=== PATIENT | male | born 2000 | race Two or more races ===

== ENCOUNTER → 2025-02-22 | Day surgery (SDC) | payer OTHER ==
[2025-02-19 12:30] LABS: Urine Bacteria None Seen /hpf (None Seen)
[2025-02-19 12:47] LABS: Basophils # (auto) 0.1 10 ^3/uL (0-0.2); Basophils % (auto) 0.8 % (0.0-2.0); Eosinophils # (auto) 0.1 10 ^3/uL (0-0.8); Eosinophils % (auto) 1.9 % (0.0-7.0); Hematocrit 47.8 % (41.0-53.0); Lymphocytes # (auto) 2.4 10 ^3/uL (0.4-5.4); Lymphocytes % (auto) 33.9 % (10.0-50.0); Mean Corpuscular Hemoglobin 29.7 pg (28.0-32.0); Mean Corpuscular Hgb Conc. 35.5 g/dL (32.0-36.0); Mean Corpuscular Volume 83.6 fL (80.0-100.0); Monocytes # (auto) 0.5 10 ^3/uL (0-1.3); Monocytes % (auto) 6.9 % (0.0-12.0); Neutrophils % (auto) 56.5 % (37.0-80.0); Nucleated Red Blood Cells % 0.4 %; Platelet Count (auto) 288 10^3/uL (140-450); Red Blood Cells 5.72 10^6/uL (4.5-5.90); Red Cell Distribution Width 12.7 % (11.8-14.3)
[2025-02-19 13:09] LABS: INR 0.97 (0.9-1.15); Partial Thromboplastin Time 26.5 SEC (24.5-34.5); Prothrombin Time 10.3 sec (9.3-11.8)
[2025-02-19 13:11] LABS: Alkaline Phosphatase 72 U/L (46-116); Anion Gap 7 (5-15); BUN/Creatinine Ratio 10.1 (10.0-20.0); Blood Urea Nitrogen 11 mg/dL (9-23); Carbon Dioxide 30 mmol/L (20-31); Chloride 103 mmol/L (98-107); Glucose 92 mg/dL (74-106); Potassium 4.4 mmol/L (3.5-5.1); Sodium 140 mmol/L (136-145); Total Protein 7.8 g/dL (5.7-8.2); Urine Blood Negative /uL (Negative); Urine Clarity Clear (Clear); Urine Color Light-Yellow (Yellow); Urine Protein, UAD Negative (Negative); Urine Specific Gravity 1.018 (1.001-1.035); Urine Squamous Epithelial Cell FEW /hpf (<5); Urine Urobilinogen Normal (Negative); Urine WBC < 1 /HPF (0-3)
[2025-02-19 13:18] LABS: Alanine Aminotransferase 115 U/L (7-40); Albumin 5.1 g/dL (3.2-4.8); Aspartate Aminotransferase 58 U/L (13-40)
[~2025-02-22] VITALS: Ht 188 cm; Wt 118.4 kg
[~2025-02-22] MED LIST: BACITRACIN TOP OINT 1 UD PKG TOP ONE; DexAMETHasone SOD PHOS 10MG/1ML VIAL INJ ONE; HYDROmorphone HCL 2 MG/ML VL/or syr IV PRN; HYDROmorphone HCL 2 MG/ML VL/or syr ONE; MEPERIDINE HCL (25 MG/ML) 1ML VIAL IV PRN; ONDANSETRON HCL 4 MG/2 ML VIAL IV ONE; ONDANSETRON HCL 4 MG/2 ML VIAL ONE; PROPOFOL 10 MG/ML 20 ML IV ONE; ROPIVACAINE 0.5% (5MG/ML) 20ML AMPULE IJ ONE; ceFAZolin 1GM VL ONE; ePHEDrine SULFATE 50 MG/ML AMP ONE; fentaNYL CITRATE 100 MCG/2 ML VL ONE
[2025-02-22] MEDS: BUPIVACAINE HCL 50 ML ONE (14:28)
--- NOTE | 2025-02-22 14:32 | DVHOP2 ---
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 These include but are not limited to complications of anesthesia, postoperative infection, incomplete relief of symptoms, recurrence of symptoms, damage to blood vessels, nerves and tendons, deep venous thrombosis, pulmonary embolism and possible need for repeat surgery in the future. Complications: None Estimated Blood Loss: 10 mL Indications for Surgery: The patient is a 24-year-old male who presented to the clinic with a history of recurrent patellar dislocations. He was referred to me by another orthopedic surgeon. Clinical and radiological evaluation demonstrated slight patellar laxity, 2+ quadrant. J sign was negative. Range of motion was full and free. MRI did show some lateral patellar subluxation with attenuation of the medial patellofemoral ligament. Nonoperative and operative management options were discussed. Surgery in the form of knee arthroscopy with medial patellofemoral ligament reconstruction was discussed with him. Pros and cons were discussed. Benefits, risks and treatment alternatives were discussed. Specific complications of the surgery such as neurovascular injury, infection, arthrofibrosis, loss of limb or life were discussed. The patient decided to proceed with the surgical option. Name of Procedure Performed Right knee arthroscopy with chondroplasty of the patella, open medial patellofemoral ligament reconstruction, imbrication of the vastus medialis o bliquus and repair of the medial patellar retinaculum Procedure Details Procedure Details: The patient was identified in the preoperative holding area and the surgical site was marked. The consent was verified. The patient was brought into the operating room and placed supine on the operating table. General anesthesia was administered. A tourniquet was applied over the proximal thigh. All the bony prominences were appropriately padded. The knee was positioned appropriately. The extremity was now prepped and draped in the usual sterile manner. A timeout was called out to confirm the identity of the patient, the nature of surgery, the site of surgery, the availability of implants and x-rays and allergies to medications. A standard anterolateral portal was established. A 30 degree scope was inserted. A standard anteromedial portal was established, a probe was inserted and the findings are as follows 1. Normal meniscus 2. Intact ACL and PCL 3. Intact medial compartment cartilage 4. Intact lateral meniscus and lateral compartment cartilage 5. Laterally subluxed patella with significant grade 2/3 chondromalacia Chondroplasty was performed. A shaver and thermal ablation device was used for the same. Most of the chondral damage was in the center and the lateral facet. Significant lateral subluxation was noted, approximately 20%. A partial lateral release was done to release the tension. Diagnostic arthroscopy was performed. I proceeded with the open part of the procedure Open medial patellofemoral ligament reconstruction: The tibialis posterior allograft was opened on the back table and prepared. Both the ends were whipstitched. It was placed on the Graftmaster with 10 pounds of tension. The quadrupled diameter was 8 mm. A small incision was made over the medial aspect of the patella. The skin and the subcutaneous tissue were dissected. The deep fascia was incised. The medial retinaculum was incised. The medial border of the patella was exposed. An arthroscopic bur was used to remove the scar tissue and debride the medial border. An all suture anchor was used. Two of these anchors were used for excellent fixation. Next, the graft was brought into the operative field and the midportion of the graft was secured to the medial border of the patella. Next, the medial epicondyle was exposed. For this an incision was made over it. The skin and the subcutaneous tissue were dissected. The deep fascia was incised and the medial epicondyle exposed. Hemostasis was achieved. A guidepin was inserted at the anatomical center of the attachment of the medial patellofemoral ligament. Radiographic markers were used. A eight mm reamer was now used to drill through the cortex up to the opposite cortex but not through it. The guidepin was used to shuttle a looped suture. Deep tissue dissection was carried out between the second and third layer to the medial epicondyle. The tail ends of the graft were now passed between these layers and through the loop into the femoral tunnel. The knee was kept at 30 degrees of flexion and adequate tension was applied to ensure that there is 1 quadrant laxity but not too lax or too tight. The femoral end of the graft was now fixed with an interference screw. Excellent fixation was noted. Good range of motion of the knee was noted without overtightening of the graft. Good isometry was noted. The medial retinaculum was closed with nonabsorbable sutures. The same sutures from the previous anchors were used. The sutures were passed through the medial retinaculum, imbrication and advancement of the vastus medialis obliquus was done using this technique. The deep tissue was closed with Vicryl, the skin was closed with Monocryl. A sterile dressing was applied. The knee was placed in hinged range of motion brace set at -10 to 30 degrees Disposition: Good, the patient was extubated and taken to the recovery without any complications Plan: The patient may partial weight-bear. Range of motion as tolerated per brace settings, 0-30 degrees. Condition Good Disposition Home BRENDEN GASTELUM MD Feb 22, 2025 14:32
[2025-02-22 14:46] VITALS: PULSE 95; RESP 18; TEMP 97.4; O2SAT 91
--- NOTE | 2025-02-22 14:55 | DVH ---
XY R KNEE 3V XRAY INDICATION: RT KNEE MEDIAL PATELLOFEMORAL LIGAMENT RECONSTRUCTION TECHNIQUE: Intraoperative fluoroscopic images were obtained TOTAL DOSE AREA PRODUCT: [id number] mGym2 COMPARISON: NoneNone available at the time of dictation FINDINGS: Successful intraoperative fluoroscopic guidance. IMPRESSION: 1. Successful intraoperative fluoroscopic guidance and please follow up with surgical report.
--- NOTE | 2025-02-22 14:57 | DVH ---
XY C ARM FLUOROSCOPY UP TO 60MIN INDICATION: RT KNEE MEDIAL PATELLOFEMORAL LIGAMENT RECONSTRUCTION TECHNIQUE: Intraoperative fluoroscopic images were obtained TOTAL DOSE AREA PRODUCT: [id number] mGym2 COMPARISON: NoneNone available at the time of dictation FINDINGS: Successful intraoperative fluoroscopic guidance. IMPRESSION: 1. Successful intraoperative fluoroscopic guidance and please follow up with surgical report. HS:Y
[2025-02-22] MEDS: ACETAMINOPHEN IV 1000 MG/100ML (10MG/ML) IV PRN (16:10)
[2025-02-22 16:31] VITALS: BP 145/87; PULSE 92; RESP 16; O2SAT 92
== END | disposition home or self-care (01) ==
LOC: SUR 09:41
PROVIDERS: ATTEND Orthopaedic Surgery Sports Medicine
DX: M22.01 Recurrent dislocation of patella, right knee (principal); M23.51 Chronic instability of knee, right knee; M22.41 Chondromalacia patellae, right knee; J45.909 Unspecified asthma, uncomplicated; S83.011A Lateral subluxation of right patella, initial encounter; X58.XXXA Exposure to other specified factors, initial encounter; Y93.89 Activity, other specified; Y92.89 Other specified places as the place of occurrence of the external cause; Y99.8 Other external cause status
CPT/HCPCS: 27566; 29873; 29999; 36415; 64447; 73562; 80053; 81001; 85025; 85610; 85730; C1713; C1762; J0690; J1100; J1171; J2405; J2704; J2795; J3010; J3490; 76000; J0131